=== PATIENT | female | born 1985 | race African-American/Black ===

== ENCOUNTER 2017-06-27 13:27 | Emergency (ER) | payer BC ==
[~2017-06-27] VITALS: Ht 162.6 cm; Wt 93.4 kg
--- NOTE | ~2017-06-27 | EKG ---
[address] [address] ELECTROCARDIOGRAM REPORT Name: WANDA ABEL [id number] Admission: 06/27/17 Attend Phys: Discharge: 06/27/17 Date of : 87 Report #: [id number] THIS REPORT FOR: //name// [facility] ED Test Date: 2017-06-27 Test Time: 13:38:44 Pat Name: WANDA ABEL Department: Room: Gender: F Esthetician/Spa Coordinator: : 1985 Requested By: Lupe Jesus Order Number: [id number] MD: Rogelio Huynh Measurements Intervals [place] Rate: 100 P: 0 NC: 146 QRS: 17 QRSD: 88 T: -53 QT: 328 QTc: 423 Interpretive Statements Sinus tachycardia Nonspecific T abnormalities, inferior leads No previous ECG available for comparison Electronically Signed On 06-28-2017 9:21:18 BILL COLLECTOR by Rogelio Huynh [email or web address] <ELECTRONICALLY SIGNED> By: Rogelio Huynh MD 06/28/17 0921 [id number] Rogelio Huynh MD /EPI
[~2017-06-27 13:27] MED LIST: APAP500; COLACE 100 MG100 MG; DERMOPLAST SPRA56 ML; IBUPROFEN 800800 M1; IROSPAN 24/6 T1 EACH; LANOLIN56 GM; TUCKS1 EAC1
[2017-06-27 14:37] LABS: HEMATOCRIT 36.2 % (37.0-47.0); HEMOGLOBIN 11.6 gm/dL (12.0-15.0); MANUAL DIFF YES; MCH 19.8 pg (26.0-34.0); MCHC 32.2 g/dL (28.0-37.0); MCV 61.6 fL (80.0-100.0); PLATELET COUNT 259 thou/uL (150-400); RBC 5.87 mil/uL (4.20-5.00); WBC 11.8 thou/uL (4.0-11.0)
[2017-06-27 14:52] LABS: CALCIUM 9.1 mg/dL (8.5-10.1); CREATININE 0.8 mg/dL (0.6-1.0); POTASSIUM 3.6 mmol/L (3.5-5.1)
[2017-06-27 14:56] LABS: ABSOLUTE NEUTROPHILS 10.3 thou/uL (1.4-8.2); TOTAL CELL COUNT 100
[2017-06-27 14:57] LABS: ANISOCYTOSIS 1+; HYPOCHROMASIA 1+; MICROCYTES 2+
[2017-06-27 14:58] LABS: POLYCHROMASIA OCCASIONAL
[2017-06-27 14:59] LABS: LARGE PLATELETS OCCASIONAL; OVALOCYTES FEW; TARGET CELLS OCCASIONAL
[2017-06-27] MEDS ORDERED: NAPROSYN500 MG PO (15:06)
[2017-06-27 15:28] VITALS: BP 122/78
== END 2017-06-27 15:29 | disposition home or self-care (01) ==
LOC: ER 13:27
PROVIDERS: Physician Assistant
DX: M79.1 Myalgia (principal); R07.9 Chest pain, unspecified; R51 Headache; R50.9 Fever, unspecified